=== PATIENT | female | born 1970 | race African-American/Black ===

== ENCOUNTER 2024-02-16 07:10 | Day surgery (SDC) | payer OTHER ==
[~2024-02-16] VITALS: Ht 163.8 cm; Wt 86.8 kg
[~2024-02-16 07:10] MED LIST: SODIUM CHLORIDE 0.9% 1,000 ML ONE
[2024-02-16] MEDS ORDERED: LIDOCAINE 4% 50 ML SOLUTION TP ONE (07:11)
[2024-02-16] MEDS ORDERED: EPINEPHrine 1:1,000 [1 MG/ML] VIAL ET ONE (07:11)
[2024-02-16] MEDS ORDERED: LIDOCAINE 2% 11 ML JELLY TP ONE (07:11)
[2024-02-16] MEDS ORDERED: MIDAZOLAM HCL 2 MG/2 ML VIAL ONE (08:11)
[2024-02-16] MEDS ORDERED: FentaNYL CITRATE PF 100 MCG/2 ML VIAL ONE (08:12)
[2024-02-16] MEDS: SODIUM CHLORIDE 0.9% 1,000 ML IV ONE (08:23)
[2024-02-16] MEDS ORDERED: BUDE10.26 IH (08:47)
[2024-02-16] MEDS ORDERED: FAMO20 PO (08:47)
[2024-02-16] MEDS ORDERED: ESTR-95 PO (08:47)
[2024-02-16] MEDS ORDERED: ALBU18HF12 IH (08:47)
[2024-02-16] MEDS ORDERED: GABA-1181 PO (08:47)
[2024-02-16] MEDS ORDERED: PANT-31 PO (08:47)
[2024-02-16] MEDS ORDERED: MONT-35 PO (08:47)
[2024-02-16] MEDS ORDERED: FLUT16SP NASAL (08:47)
[2024-02-16] MEDS ORDERED: PRED-729 PO (08:47)
[2024-02-16] MEDS ORDERED: PROM118S5 PO (08:47)
[2024-02-16 09:40] VITALS: PULSE 82; RESP 21; O2SAT 99
[2024-02-16] MEDS ORDERED: MethylPREDNISolone SOD SUCC 125 MG/2 ML VIAL ONE (10:10)
[2024-02-16] MEDS: MethylPREDNISolone SOD SUCC 125 MG/2 ML VIAL IVP ONE (10:16)
== END 2024-02-16 12:55 | disposition home or self-care (01) ==
LOC: SURGERY 07:10
PROVIDERS: ATTEND Internal Medicine Critical Care Medicine
DX: R05.3 Chronic cough (principal); R06.2 Wheezing; M47.814 Spondylosis without myelopathy or radiculopathy, thoracic region; R91.1 Solitary pulmonary nodule; R91.8 Other nonspecific abnormal finding of lung field; R04.2 Hemoptysis; R49.0 Dysphonia; J38.4 Edema of larynx; B37.0 Candidal stomatitis
CPT/HCPCS: 87206; 87101; 87220; 87070; 31623; 31624; 71045; 87015; J0171; J3010; J2250; J2930; Q9967; J7030; 88108; Z7610